=== PATIENT | male | born 1940 | race Caucasian/White ===

== ENCOUNTER 2017-05-26 19:30 | Emergency (ER) | payer MEDICARE, OTHER ==
[~2017-05-26] VITALS: Ht 177.8 cm; Wt 83.9 kg
[~2017-05-26 19:30] MED LIST: APIX5TAB PO; ATOR10TA60 PO; ATOR20TA PO; Aspirin PO; BUDE0.5A NEB; CARV3.12 PO; DIGO125T16 PO; DIGO250T PO; DILT120C80 PO; DILT180C29; DILT180C29 PO; DILT240C32 PO; DOXY100C2 PO; Diltiazem Hcl PO; Doxycycline Hyclate PO; FLUT16SP NS; FLUT250D IH; FORM20VI NEB; FURO-68 PO; FURO40TA4; LEVO500T59 PO; LISI-338 PO; LORA0.5T; LORA0.5T96 PO; METF500T9; METO25TA4 PO; MOME220A5 IH; POTA20TA84; PRED20TA; PRED20TA PO; PRED50TA PO; PROAIR HFA8.5 GM IH; SALM50DI IH; TAMS0.4C2; VENTOLIN HFA18 GM
--- NOTE | 2017-05-26 21:26 | PHYS DOC ---
Past Medical History Past Medical History: A-Fib, CHF, COPD Additional Past Medical Histor: pulmonary fibrosis Past Surgical History: No Surgical History Alcohol Use: Heavy Drug Use: None Adult General Chief Complaint Chief Complaint: FOOT INJURY PAIN [facility] HPI Patient is a 76 year old male who presents with swelling and redness in his left leg. He states he dropped 3 pounds of ground hamburger that was frozen on it yesterday and since it is getting red. He denies any pain. He denies any fevers chills nausea or vomiting. He is on eliquist, for previous blood clot. He states he is compliant with this. He states he has a history of pulmonary fibrosis and is on oxygen at home, he denies any chest pain or shortness of breath is different than his normal shortness of breath. Review of Systems Review of Systems Constitutional: Denies fever or chills [] Eyes: Denies change in visual acuity, redness, or eye pain [] HENT: Denies nasal congestion or sore throat [] Respiratory: Denies cough or shortness of breath [] Cardiovascular: No additional information not addressed in HPI [] GI: Denies abdominal pain, nausea, vomiting, bloody stools or diarrhea [] : Denies dysuria or hematuria [] Musculoskeletal: Denies back pain or joint pain [] Integument: Positive for rash on left lower leg Neurologic: Denies headache, focal weakness or sensory changes [] Endocrine: Denies polyuria or polydipsia [] All other systems were reviewed and found to be within normal limits, except as documented in this note. Current Medications Current Medications Current Medications Medications (Trade) Dose Ordered Sig/Lyubov Start Time Stop Time Status Last Admin Dose Admin Clindamycin HCl (Cleocin) 300 mg 1X ONCE 05/26/17 22:15 05/26/17 22:16 Allergies Allergies Allergies Coded Allergies Type Severity Reaction Last Updated Verified salmeterol Allergy Severe see comment 04/23/15 Yes Physical Exam Physical Exam Constitutional: Well developed, well nourished, no acute distress, non-toxic appearance. [] HENT: Normocephalic, atraumatic, bilateral external ears normal, oropharynx moist, no oral exudates, nose normal. [] Eyes: PERRLA, EOMI, conjunctiva normal, no discharge. [] Neck: Normal range of motion, no tenderness, supple, no stridor. [] Cardiovascular:Heart rate regular rhythm, no murmur [] Lungs & Thorax: Bilateral breath sounds clear to auscultation [] Abdomen: Bowel sounds normal, soft, no tenderness, no masses, no pulsatile masses. [] Skin: Warm, dry, no erythema, no rash. [] Back: No tenderness, no CVA tenderness. [] Extremities: No tenderness, no cyanosis, no clubbing, ROM intact, 1-2+ pitting lower extremity edema on the left, erythema from proximal toes to mid calf, dry cracked skin on toes, dorsal pedis pulse 2+ on the left. Neurologic: Alert and oriented X 3, normal motor function, normal sensory function, no focal deficits noted. [] Psychologic: Affect normal, judgement normal, mood normal. [] Current Patient Data Vital Signs Vital Signs Date Time Temp Pulse Resp B/P (MAP) Pulse Ox O2 Delivery O2 Flow Rate FiO2 05/26/17 19:46 97.4 96 22 129/81 (97) 93 Nasal Cannula 8.0 97.4 EKG EKG [] Radiology/Procedures Radiology/Procedures [] Impressions: Cellulitis of left lower extremity Course & Med Decision Making Course & Med Decision Making Pertinent Labs and Imaging studies reviewed. (See chart for details) She is not tachycardic and does not have a fever. Ultrasound does not show DVT. We'll treat for cellulitis. Started 300mg clindamycin in the ER we'll discharge with the same for 10 days. He is instructed to follow-up with primary care physician within the next few days, he is instructed to take a picture of his leg to show for comparison. He is instructed return back to ER for fevers, worsening redness, pain, uncontrolled nausea vomiting or other concerns. He and his sister is agreeable plan being discharged in stable condition at this time. Dragon Disclaimer Dragon Disclaimer This electronic medical record was generated, in whole or in part, using a voice recognition dictation system. Departure Departure Impression: Primary Impression: Cellulitis Disposition: 01 HOME, SELF-CARE Condition: STABLE Referrals: RICHARD ANDERSON (PCP) Patient Instructions: Cellulitis Additional Instructions: You will need to use antibiotics for the next 10 days. You will need follow-up to primary care physician within the next few days. Please take a picture of your leg so you can show it to your primary care physician as a comparison. Return back to ER if you have high fevers, uncontrolled nausea vomiting, the redness in your leg gets worse, or you have any other concerns. Scripts Clindamycin Hcl (CLINDAMYCIN HCL) 300 Mg Capsule 1 CAP PO TID, #30 CAP Prov: JULISA GARCIA MD 05/26/17 JULISA GARCIA MD May 26, 2017 21:26
[2017-05-26 22:00] VITALS: BP 135/64
[2017-05-26] MEDS ORDERED: CLINDAMYCIN HCL 150 MG CAPSULE. PO ONE (22:15)
[2017-05-26] MEDS ORDERED: CLIN300C8 PO (22:18)
--- NOTE | 2017-05-26 22:24 | RAD ---
EXAM: Left lower extremity venous Doppler sonogram. HISTORY: Swelling. TECHNIQUE: Currie scale and color Doppler sonographic evaluation of the left lower extremity veins with spectral waveform analysis was performed. FINDINGS: There is normal color flow, normal compressibility and there are normal spectral waveforms in the common femoral, superficial femoral, popliteal, posterior tibial and greater saphenous veins. IMPRESSION: No Doppler evidence of lower extremity venous thrombosis. Electronically signed by: Fabiola Cali MD (05/26/2017 10:21 PM) [place] [id number]
--- NOTE | 2017-05-27 08:35 | RAD ---
FOOT LEFT 3V History:trauma, pain and swelling of the foot Comparison: None Findings:3 views of the left foot are submitted. There is degenerative change most notable of the first metatarsophalangeal joint. No displaced fracture is identified. No aggressive bone destruction is identified. There is tiny plantar calcaneal enthesophyte. There is soft tissue swelling. Impression: 1.There is soft tissue swelling, no acute osseous abnormality identified.
== END 2017-05-26 22:35 | disposition home or self-care (01) ==
LOC: ER 19:30
DX: L03.116 Cellulitis of left lower limb (principal); I48.91 Unspecified atrial fibrillation; I50.9 Heart failure, unspecified; J44.9 Chronic obstructive pulmonary disease, unspecified; J84.10 Pulmonary fibrosis, unspecified; F10.20 Alcohol dependence, uncomplicated; Z99.81 Dependence on supplemental oxygen; Z88.8 Allergy status to other drugs, medicaments and biological substances
CPT/HCPCS: 73630; 93971; 99284-25

== ENCOUNTER 2017-09-07 11:07 | Inpatient (IN) | payer MEDICARE, OTHER ==
[2017-09-07] MEDS ORDERED: IPRATRPIUM/ALBUTEROL 0.5/2.5MG 3 ML NEBU. (12:37)
[2017-09-07] MEDS: ALBUTEROL SULFATE 2.5 MG/3 ML NEBU. NEB (12:42)
[2017-09-07 12:54] LABS: BASO % 0 % (0-3); EOS % 0 % (0-3); HEMATOCRIT 40.3 % (39.0-53.0); HEMOGLOBIN 13.4 g/dL (13.0-17.5); LYMPH # 0.6 x10^3/uL (1.0-4.8); LYMPH % 6 % (24-48); MEAN CORPUSCULAR HEMOGLOBIN 31 pg (25-35); MEAN CORPUSCULAR HGB CONC 33 g/dL (31-37); MEAN CORPUSCULAR VOLUME 92 fL (79-100); MONO # 0.3 x10^3/uL (0.0-1.1); MONO % 4 % (0-9); NEUT # 8.1 x10^3uL (1.8-7.7); NEUT % 89 % (31-73); PLATELET COUNT 163 x10^3/uL (140-400); RED CELL DISTRIBUTION WIDTH 14.7 % (11.5-14.5); WHITE BLOOD COUNT 9.1 x10^3/uL (4.0-11.0)
[2017-09-07 12:55] LABS: ADD MAN DIFF? YES
[2017-09-07 12:57] LABS: ALBUMIN 3.5 g/dL (3.4-5.0); ALK PHOS 122 U/L (46-116); ALT (SGPT) 88 U/L (16-63); ANION GAP 3 (6-14); AST (SGOT) 50 U/L (15-37); BLOOD UREA NITROGEN 17 mg/dL (8-26); CALCIUM 9.1 mg/dL (8.5-10.1); CARBON DIOXIDE 36 mmol/L (21-32); CHLORIDE 91 mmol/L (98-107); DIRECT BILIRUBIN 0.4 mg/dL (0.0-0.2); GFR 72.6; LIPASE 277 U/L (73-393); POTASSIUM 4.8 mmol/L (3.5-5.1); SODIUM 130 mmol/L (136-145); TOTAL BILIRUBIN 1.2 mg/dL (0.2-1.0); TOTAL PROTEIN 7.7 g/dL (6.4-8.2)
[2017-09-07 12:59] LABS: INR 1.1 (0.8-1.1); PARTIAL THROMBOPLASTIN TIME 30 SEC (24-38); PROTHROMBIN TIME PATIENT 13.4 SEC (11.7-14.0)
[2017-09-07 13:01] LABS: GLUCOSE 651 mg/dL (70-99)
[2017-09-07 13:01] LABS: TROPONINI < 0.017 ng/mL (0.000-0.055)
[2017-09-07 13:02] LABS: NT-PRO BNP 1148 pg/mL (0-449)
[2017-09-07 13:13] LABS: LACTIC ACID 2.1 mmol/L (0.4-2.0)
[2017-09-07 13:15] LABS: BILIRUBIN,URINE NEGATIVE (NEG); CLARITY,URINE CLEAR; COLOR,URINE YELLOW; GLUCOSE,URINE >=1000 mg/dL (NEG); NITRITE,URINE NEGATIVE (NEG); PROTEIN,URINE NEGATIVE (NEG-TRACE); UROBILINOGEN,URINE 0.2 mg/dL (0.2 mg/dL)
[2017-09-07 13:29] LABS: BACTERIA,URINE 0 /HPF (0-FEW); RBC,URINE 0 /HPF (0-2); SQUAMOUS EPITHELIAL CELL,UR OCC /LPF; WBC,URINE 0 /HPF (0-4)
[2017-09-07] MEDS ORDERED: CONTRAST GIVEN MC (13:45)
[2017-09-07] MEDS: IOHEXOL 300 MG/ML 100ML VIAL. IV (13:53)
[2017-09-07] MEDS ORDERED: ONDANSETRON PF 4 MG/2 ML VIAL. IV (14:00)
[2017-09-07] MEDS ORDERED: MORPHINE SULFATE 4 MG/ML DISP.SYRIN. IV (14:00)
[2017-09-07] MEDS: INSULIN REGULAR 100 UNIT/ML 10ML VIAL. IV (14:33)
[2017-09-07] MEDS: VANCOMYCIN 1.75 GM in IV DEXTROSE 5 %-0.2 % NACL 500 ML IV (14:35)
[2017-09-07 15:28] LABS: % BANDS 8 % (0-9); % LYMPHS 2 % (24-48); % MONOS 4 % (0-10); % SEGS 86 % (35-66); PLT ESTIMATE ADEQUATE (ADEQUATE)
[2017-09-07] MEDS: VANCOMYCIN PER PHARMACY MC (16:46)
[2017-09-07 17:03] LABS: LACTIC ACID 3.2 mmol/L (0.4-2.0)
[2017-09-07 17:14] LABS: POC GLUCOSE 474 mg/dL (70-99)
[2017-09-07] MEDS ORDERED: DEXTROSE 50% 25 GM / 50ML DISP.SYRIN. IV ×2 (18:00→19:30)
[2017-09-07 19:48] LABS: POC GLUCOSE 427 mg/dL (70-99)
[2017-09-07] MEDS: INSULIN REGULAR VIAL 150 UNIT in 0.9 % SODIUM CHLORIDE 150ML 150 ML IV (19:56)
[2017-09-07] MEDS: LACTOBACILLUS RHAMNOSUS GG 1 CAPSULE. PO (21:03)
[2017-09-07 21:17] LABS: POC GLUCOSE 288 mg/dL (70-99)
[2017-09-07 21:52] LABS: LACTIC ACID 2.2 mmol/L (0.4-2.0)
[2017-09-07] MEDS: BUDESONIDE 0.5 MG/2 ML NEBU. NEB (22:00)
[2017-09-07] MEDS: IPRATRPIUM/ALBUTEROL 0.5/2.5MG 3 ML NEBU. NEB (22:00)
[2017-09-07] MEDS ORDERED: ALBUTEROL SULFATE 2.5 MG/3 ML NEBU. NEB (22:00)
[2017-09-07] MEDS: FLUTICASONE 50MCG/NASAL SPRAY 16GM BOTTLE. NS (22:00)
[2017-09-07] MEDS: METOPROLOL TART IMMED RELEASE 25 MG TABLET. PO (22:00)
[2017-09-07] MEDS: TAMSULOSIN 0.4 MG CAP.ER.24H. PO (22:18)
[2017-09-07] MEDS: oxyCODONE/APAP 5/325 1 TAB TABLET PO (22:18)
[2017-09-07] MEDS: predniSONE 10 MG TABLET PO (22:18)
[2017-09-07] MEDS: ATORVASTATIN CALCIUM 10 MG TABLET. PO (22:19)
[2017-09-07] MEDS: APIXABAN 5 MG TABLET. PO (22:19)
[2017-09-07 22:29] LABS: POC GLUCOSE 217 mg/dL (70-99)
[2017-09-07 23:22] LABS: POC GLUCOSE 130 mg/dL (70-99)
[2017-09-08 00:27] LABS: POC GLUCOSE 125 mg/dL (70-99)
[2017-09-08 01:28] LABS: POC GLUCOSE 117 mg/dL (70-99)
[2017-09-08] MEDS: VANCOMYCIN 1.25 GM in IV DEXTROSE 5 %-0.2 % NACL 250 ML IV ×2 (01:28→14:30)
[2017-09-08 03:10] LABS: POC GLUCOSE 227 mg/dL (70-99)
[2017-09-08 04:55] LABS: POC GLUCOSE 443 mg/dL (70-99)
[2017-09-08 05:18] LABS: ADD MAN DIFF? NO
[2017-09-08 05:45] LABS: BASO % 1 % (0-3); EOS # 0.1 x10^3/uL (0.0-0.7); EOS % 1 % (0-3); HEMATOCRIT 36.5 % (39.0-53.0); LYMPH # 0.8 x10^3/uL (1.0-4.8); LYMPH % 10 % (24-48); MEAN CORPUSCULAR HEMOGLOBIN 30 pg (25-35); MEAN CORPUSCULAR HGB CONC 33 g/dL (31-37); MEAN CORPUSCULAR VOLUME 91 fL (79-100); MONO # 0.2 x10^3/uL (0.0-1.1); MONO % 3 % (0-9); NEUT # 7.5 x10^3uL (1.8-7.7); NEUT % 87 % (31-73); PLATELET COUNT 135 x10^3/uL (140-400); RED BLOOD COUNT 3.99 x10^6/uL (4.30-5.70); RED CELL DISTRIBUTION WIDTH 14.9 % (11.5-14.5); WHITE BLOOD COUNT 8.7 x10^3/uL (4.0-11.0)
[2017-09-08 05:59] LABS: ANION GAP 8 (6-14); BLOOD UREA NITROGEN 12 mg/dL (8-26); CALCIUM 9.2 mg/dL (8.5-10.1); CARBON DIOXIDE 34 mmol/L (21-32); CHLORIDE 95 mmol/L (98-107); CREATININE 0.8 mg/dL (0.7-1.3); GLUCOSE 367 mg/dL (70-99); SODIUM 137 mmol/L (136-145)
[2017-09-08 06:06] LABS: POTASSIUM 2.9 mmol/L (3.5-5.1)
[2017-09-08 06:10] LABS: CHOLESTEROL 175 mg/dL (0-200); HDLC 71 mg/dL (40-60); LDLC 75 mg/dL (0-100); NON-HDL CHOLESTEROL 104 mg/dL (0-129); TRIGLYCERIDES 143 mg/dL (0-150); VLDLC 29 mg/dL (0-40)
[2017-09-08 06:14] LABS: CHOLESTEROL/HDL RATIO 2.5
[2017-09-08 06:21] LABS: THYROID STIM HORMONE (TSH) 0.918 uIU/mL (0.358-3.74)
[2017-09-08] MEDS: POTASSIUM CHLORIDE 20 MEQ TABLET.ER. PO ×3 (06:50→12:13)
[2017-09-08] MEDS ORDERED: POTASSIUM CHLORIDE 20 MEQ TABLET.ER. PO (08:00)
[2017-09-08] MEDS: IPRATRPIUM/ALBUTEROL 0.5/2.5MG 3 ML NEBU. NEB ×4 (08:04→19:22)
[2017-09-08] MEDS: BUDESONIDE 0.5 MG/2 ML NEBU. NEB ×2 (08:04→19:22)
[2017-09-08] MEDS: LACTOBACILLUS RHAMNOSUS GG 1 CAPSULE. PO ×2 (08:41→20:37)
[2017-09-08] MEDS: ASPIRIN CHEWABLE 81 MG TABLET. PO (08:42)
[2017-09-08 08:43] LABS: POC GLUCOSE 293 mg/dL (70-99)
[2017-09-08] MEDS: predniSONE 10 MG TABLET PO ×2 (08:43→20:38)
[2017-09-08] MEDS: DIGOXIN 125 MCG TABLET. PO (08:43)
[2017-09-08] MEDS: APIXABAN 5 MG TABLET. PO ×2 (08:44→20:38)
[2017-09-08] MEDS: FUROSEMIDE 40 MG TABLET. PO ×2 (08:44→14:29)
[2017-09-08] MEDS: METOPROLOL TART IMMED RELEASE 25 MG TABLET. PO ×2 (08:44→20:38)
[2017-09-08] MEDS: ANTI-COAG MONITOR BY PHARMACY. MC (08:49)
[2017-09-08] MEDS: INSULIN ASPART 300 UNITS/3 ML INSULN.PEN SQ ×5 (08:59→21:40)
[2017-09-08 09:01] LABS: MAGNESIUM 2.3 mg/dL (1.8-2.4)
[2017-09-08] MEDS: INSULIN DETEMIR 300 UNITS/3 ML INSULN.PEN. SQ ×2 (09:04→17:46)
[2017-09-08] MEDS: VANCOMYCIN PER PHARMACY MC (11:15)
[2017-09-08] MEDS: FLUTICASONE 50MCG/NASAL SPRAY 16GM BOTTLE. NS ×2 (11:53→20:37)
[2017-09-08] MEDS: MICAFUNGIN 100 MG in IV DEXTROSE 5% 100 ML IV (12:14)
[2017-09-08 12:22] LABS: POC GLUCOSE 344 mg/dL (70-99)
[2017-09-08] MEDS: PIPERACILLIN/TAZOBACTAM 3.375 GM in IV NORMAL SALINE 50ML 50 ML IV ×3 (13:38→23:45)
[2017-09-08 17:27] LABS: POC GLUCOSE 455 mg/dL (70-99)
[2017-09-08 18:27] LABS: POTASSIUM 4.5 mmol/L (3.5-5.1)
[2017-09-08] MEDS: ATORVASTATIN CALCIUM 10 MG TABLET. PO (20:37)
[2017-09-08] MEDS: TAMSULOSIN 0.4 MG CAP.ER.24H. PO (20:37)
[2017-09-08 21:08] LABS: POC GLUCOSE 467 mg/dL (70-99)
[2017-09-08] MEDS ORDERED: INSULIN ASPART 300 UNITS/3 ML INSULN.PEN SQ (21:15)
[2017-09-08] MEDS: oxyCODONE/APAP 5/325 1 TAB TABLET PO (22:37)
[2017-09-09 01:24] LABS: POC GLUCOSE 126 mg/dL (70-99)
[2017-09-09] MEDS: VANCOMYCIN 1.25 GM in IV DEXTROSE 5 %-0.2 % NACL 250 ML IV (02:31)
[2017-09-09] MEDS: VANCOMYCIN PER PHARMACY MC ×2 (03:03→11:21)
[2017-09-09] MEDS: oxyCODONE/APAP 5/325 1 TAB TABLET PO ×2 (04:12→23:41)
[2017-09-09] MEDS: PIPERACILLIN/TAZOBACTAM 3.375 GM in IV NORMAL SALINE 50ML 50 ML IV ×4 (05:39→23:45)
[2017-09-09 05:41] LABS: ANION GAP 2 (6-14); BLOOD UREA NITROGEN 17 mg/dL (8-26); CARBON DIOXIDE 38 mmol/L (21-32); CHLORIDE 100 mmol/L (98-107); CREATININE 0.7 mg/dL (0.7-1.3); GFR 109.6; GLUCOSE 98 mg/dL (70-99); POTASSIUM 3.5 mmol/L (3.5-5.1); SODIUM 140 mmol/L (136-145)
[2017-09-09] MEDS: IPRATRPIUM/ALBUTEROL 0.5/2.5MG 3 ML NEBU. NEB ×4 (07:30→19:10)
[2017-09-09] MEDS: BUDESONIDE 0.5 MG/2 ML NEBU. NEB (07:30)
[2017-09-09 07:47] LABS: POC GLUCOSE 153 mg/dL (70-99)
[2017-09-09] MEDS: LACTOBACILLUS RHAMNOSUS GG 1 CAPSULE. PO ×2 (08:35→20:34)
[2017-09-09] MEDS: DIGOXIN 125 MCG TABLET. PO (08:36)
[2017-09-09] MEDS: METOPROLOL TART IMMED RELEASE 25 MG TABLET. PO ×2 (08:36→20:34)
[2017-09-09] MEDS: predniSONE 10 MG TABLET PO ×2 (08:36→20:33)
[2017-09-09] MEDS: FUROSEMIDE 40 MG TABLET. PO ×2 (08:37→13:21)
[2017-09-09] MEDS: APIXABAN 5 MG TABLET. PO ×2 (08:37→20:34)
[2017-09-09] MEDS: FLUTICASONE 50MCG/NASAL SPRAY 16GM BOTTLE. NS ×2 (08:37→20:34)
[2017-09-09] MEDS: ASPIRIN CHEWABLE 81 MG TABLET. PO (08:37)
[2017-09-09] MEDS: INSULIN ASPART 300 UNITS/3 ML INSULN.PEN SQ ×6 (08:41→18:37)
[2017-09-09] MEDS: INSULIN DETEMIR 300 UNITS/3 ML INSULN.PEN. SQ (08:42)
[2017-09-09] MEDS: MICAFUNGIN 100 MG in IV DEXTROSE 5% 100 ML IV (10:10)
[2017-09-09 11:30] LABS: POC GLUCOSE 179 mg/dL (70-99)
[2017-09-09] MEDS: ANTI-COAG MONITOR BY PHARMACY. MC (11:30)
[2017-09-09] MEDS ORDERED: SALIVA STIMULANT AGENT 44ML SPRAY BOTTLE. PO (13:30)
[2017-09-09] MEDS: VANCOMYCIN 1.5 GM in IV DEXTROSE 5 %-0.2 % NACL 500 ML IV (14:14)
[2017-09-09 14:48] LABS: BARBITURATES NEG (NEG); BENZODIAZEPINES NEG (NEG); CANNABINOIDS NEG (NEG); COCAINE NEG (NEG); METHADONE NEG (NEG); OPIATES NEG (NEG); PHENCYCLIDINE NEG (NEG)
[2017-09-09 14:51] LABS: AMPHETAMINE/METHAMPHETAMINE NEG (NEG)
[2017-09-09 14:52] LABS: ETHANOL, URINE NEG (NEG)
[2017-09-09 16:33] LABS: POC GLUCOSE 281 mg/dL (70-99)
[2017-09-09] MEDS: metFORMIN XR 500 MG TAB.ER.24H PO (18:29)
[2017-09-09] MEDS: TAMSULOSIN 0.4 MG CAP.ER.24H. PO (20:34)
[2017-09-09] MEDS: ATORVASTATIN CALCIUM 10 MG TABLET. PO (20:34)
[2017-09-09 20:57] LABS: POC GLUCOSE 163 mg/dL (70-99)
[2017-09-10] MEDS: VANCOMYCIN 1.5 GM in IV DEXTROSE 5 %-0.2 % NACL 500 ML IV (01:56)
[2017-09-10] MEDS: PIPERACILLIN/TAZOBACTAM 3.375 GM in IV NORMAL SALINE 50ML 50 ML IV ×3 (05:56→18:00)
[2017-09-10] MEDS: INSULIN ASPART 300 UNITS/3 ML INSULN.PEN SQ ×6 (07:30→17:38)
[2017-09-10] MEDS: IPRATRPIUM/ALBUTEROL 0.5/2.5MG 3 ML NEBU. NEB ×4 (08:01→19:36)
[2017-09-10] MEDS: BUDESONIDE 0.5 MG/2 ML NEBU. NEB ×2 (08:01→19:36)
[2017-09-10] MEDS: VANCOMYCIN PER PHARMACY MC (08:29)
[2017-09-10] MEDS: predniSONE 10 MG TABLET PO ×2 (08:59→20:29)
[2017-09-10] MEDS: INSULIN DETEMIR 300 UNITS/3 ML INSULN.PEN. SQ (09:00)
[2017-09-10] MEDS: LACTOBACILLUS RHAMNOSUS GG 1 CAPSULE. PO ×2 (09:05→20:29)
[2017-09-10] MEDS: FUROSEMIDE 40 MG TABLET. PO ×2 (09:06→16:02)
[2017-09-10] MEDS: ASPIRIN CHEWABLE 81 MG TABLET. PO (09:06)
[2017-09-10] MEDS: DIGOXIN 125 MCG TABLET. PO (09:06)
[2017-09-10] MEDS: APIXABAN 5 MG TABLET. PO ×2 (09:06→20:31)
[2017-09-10] MEDS: METOPROLOL TART IMMED RELEASE 25 MG TABLET. PO ×2 (09:07→20:30)
[2017-09-10] MEDS: FLUTICASONE 50MCG/NASAL SPRAY 16GM BOTTLE. NS ×2 (09:07→20:31)
[2017-09-10 10:44] LABS: POC GLUCOSE 281 mg/dL (70-99)
[2017-09-10] MEDS: MICAFUNGIN 100 MG in IV DEXTROSE 5% 100 ML IV (11:55)
[2017-09-10 12:09] LABS: POC GLUCOSE 296 mg/dL (70-99)
[2017-09-10] MEDS: ANTI-COAG MONITOR BY PHARMACY. MC (13:34)
[2017-09-10] MEDS: oxyCODONE/APAP 5/325 1 TAB TABLET PO ×2 (16:02→20:37)
[2017-09-10] MEDS: metFORMIN XR 500 MG TAB.ER.24H PO (17:22)
[2017-09-10 18:43] LABS: POC GLUCOSE 151 mg/dL (70-99)
[2017-09-10] MEDS: ATORVASTATIN CALCIUM 10 MG TABLET. PO (20:29)
[2017-09-10] MEDS: TAMSULOSIN 0.4 MG CAP.ER.24H. PO (20:31)
[2017-09-10 21:03] LABS: POC GLUCOSE 123 mg/dL (70-99)
[2017-09-11] MEDS: oxyCODONE/APAP 5/325 1 TAB TABLET PO ×4 (00:37→19:09)
[2017-09-11] MEDS: PIPERACILLIN/TAZOBACTAM 3.375 GM in IV NORMAL SALINE 50ML 50 ML IV ×2 (06:00)
[2017-09-11 07:31] LABS: POC GLUCOSE 285 mg/dL (70-99)
[2017-09-11] MEDS: IPRATRPIUM/ALBUTEROL 0.5/2.5MG 3 ML NEBU. NEB ×3 (08:08→15:58)
[2017-09-11] MEDS: BUDESONIDE 0.5 MG/2 ML NEBU. NEB (08:08)
[2017-09-11] MEDS: METOPROLOL TART IMMED RELEASE 25 MG TABLET. PO (09:00)
[2017-09-11] MEDS: predniSONE 10 MG TABLET PO (09:25)
[2017-09-11] MEDS: DIGOXIN 125 MCG TABLET. PO (09:25)
[2017-09-11] MEDS: APIXABAN 5 MG TABLET. PO (09:25)
[2017-09-11] MEDS: FUROSEMIDE 40 MG TABLET. PO ×2 (09:25→15:08)
[2017-09-11] MEDS: LACTOBACILLUS RHAMNOSUS GG 1 CAPSULE. PO (09:25)
[2017-09-11] MEDS: FLUTICASONE 50MCG/NASAL SPRAY 16GM BOTTLE. NS (09:26)
[2017-09-11] MEDS: ASPIRIN CHEWABLE 81 MG TABLET. PO (09:26)
[2017-09-11] MEDS: CEPHALEXIN 250 MG CAPSULE. PO ×2 (09:29→15:08)
[2017-09-11] MEDS: INSULIN DETEMIR 300 UNITS/3 ML INSULN.PEN. SQ (09:38)
[2017-09-11] MEDS: INSULIN ASPART 300 UNITS/3 ML INSULN.PEN SQ ×6 (09:40→18:21)
[2017-09-11 11:39] LABS: POC GLUCOSE 212 mg/dL (70-99)
[2017-09-11] MEDS: ANTI-COAG MONITOR BY PHARMACY. MC (14:45)
[2017-09-11 16:49] LABS: POC GLUCOSE 174 mg/dL (70-99)
[2017-09-11] MEDS: metFORMIN XR 500 MG TAB.ER.24H PO (18:16)
[2017-09-12] MEDS ORDERED: PIPERACILLIN/TAZOBACTAM 2.25 GM in IV NORMAL SALINE 100ML 100 ML IV (18:00)
[2017-09-18] MEDS ORDERED: POTASSIUM CHLORIDE 20 MEQ TABLET.ER. PO (17:00)
== END 2017-09-11 19:15 | disposition home or self-care (01) | DRG 291 ==
LOC: ER 11:07 → 2 SOUTH 14:00
DX: I11.0 Hypertensive heart disease with heart failure (principal); J96.21 Acute and chronic respiratory failure with hypoxia; J18.9 Pneumonia, unspecified organism; I27.81 Cor pulmonale (chronic); L03.116 Cellulitis of left lower limb; E87.1 Hypo-osmolality and hyponatremia; I42.9 Cardiomyopathy, unspecified; I48.0 Paroxysmal atrial fibrillation; J84.112 Idiopathic pulmonary fibrosis; J44.0 Chronic obstructive pulmonary disease with (acute) lower respiratory infection; I50.43 Acute on chronic combined systolic (congestive) and diastolic (congestive) heart failure; E09.9 Drug or chemical induced diabetes mellitus without complications; Z88.8 Allergy status to other drugs, medicaments and biological substances; E78.5 Hyperlipidemia, unspecified; E87.6 Hypokalemia; F10.20 Alcohol dependence, uncomplicated; G47.33 Obstructive sleep apnea (adult) (pediatric); M19.90 Unspecified osteoarthritis, unspecified site; I49.3 Ventricular premature depolarization; M79.89 Other specified soft tissue disorders; I50.82 Biventricular heart failure; N40.0 Benign prostatic hyperplasia without lower urinary tract symptoms; Z79.01 Long term (current) use of anticoagulants; Z79.52 Long term (current) use of systemic steroids; Z83.3 Family history of diabetes mellitus; Z86.711 Personal history of pulmonary embolism; Z87.891 Personal history of nicotine dependence; Z99.81 Dependence on supplemental oxygen; Z91.11 Patient's noncompliance with dietary regimen
CPT/HCPCS: 36415; 71045; 71275; 72072; 72100; 80048; 80061; 80076; 80202; 80307; 81001; 82962; 83036; 83605; 83690; 83735; 83880; 84132; 84443; 84484; 85007; 85025; 85610; 85730; 93005; 93306; 93970; 94640; 94760; 96374; 97116-GP; 97161-GP; 97165-GO; 99285-25; J1815; J2248; J2543; J3370; J7512; J7613; J7620; J7626; Q9967

== ENCOUNTER 2017-09-12 02:18 | Emergency (ER) | payer MEDICARE, OTHER ==
[2017-09-12] MEDS ORDERED: MORPHINE SULFATE 10 MG/ML VIAL. (03:14)
[2017-09-12] MEDS: MORPHINE SULFATE 10 MG/ML VIAL. IV (03:23)
[2017-09-12 03:51] LABS: ADD MAN DIFF? NO
[2017-09-12 03:53] LABS: BASO # 0.1 x10^3/uL (0.0-0.2); BASO % 1 % (0-3); EOS # 0.2 x10^3/uL (0.0-0.7); EOS % 2 % (0-3); HEMATOCRIT 38.2 % (39.0-53.0); HEMOGLOBIN 12.7 g/dL (13.0-17.5); LYMPH # 1.5 x10^3/uL (1.0-4.8); LYMPH % 20 % (24-48); MEAN CORPUSCULAR HEMOGLOBIN 30 pg (25-35); MEAN CORPUSCULAR HGB CONC 33 g/dL (31-37); MEAN CORPUSCULAR VOLUME 91 fL (79-100); MONO # 0.6 x10^3/uL (0.0-1.1); MONO % 8 % (0-9); NEUT # 5.3 x10^3uL (1.8-7.7); NEUT % 69 % (31-73); PLATELET COUNT 210 x10^3/uL (140-400); RED CELL DISTRIBUTION WIDTH 14.9 % (11.5-14.5); WHITE BLOOD COUNT 7.7 x10^3/uL (4.0-11.0)
[2017-09-12 04:03] LABS: ANION GAP 8 (6-14); BLOOD UREA NITROGEN 20 mg/dL (8-26); BUN/CREATININE RATIO 22 (6-20); CALCIUM 9.6 mg/dL (8.5-10.1); CARBON DIOXIDE 38 mmol/L (21-32); CHLORIDE 96 mmol/L (98-107); CREATININE 0.9 mg/dL (0.7-1.3); GFR 81.8; GLUCOSE 108 mg/dL (70-99); POTASSIUM 3.3 mmol/L (3.5-5.1); SODIUM 142 mmol/L (136-145)
[2017-09-12 04:09] LABS: ALBUMIN 3.1 g/dL (3.4-5.0); ALBUMIN/GLOBULIN RATIO 0.7 (1.0-1.7); ALK PHOS 117 U/L (46-116); ALT (SGPT) 43 U/L (16-63); AST (SGOT) 24 U/L (15-37); TOTAL BILIRUBIN 0.5 mg/dL (0.2-1.0); TOTAL PROTEIN 7.4 g/dL (6.4-8.2)
== END 2017-09-12 05:11 | disposition home or self-care (01) ==
LOC: ER 02:18
DX: M54.5 Low back pain (principal); I48.91 Unspecified atrial fibrillation; I11.0 Hypertensive heart disease with heart failure; I50.9 Heart failure, unspecified; J44.9 Chronic obstructive pulmonary disease, unspecified; E11.9 Type 2 diabetes mellitus without complications; E78.00 Pure hypercholesterolemia, unspecified; Z88.8 Allergy status to other drugs, medicaments and biological substances
CPT/HCPCS: 36415; 72131; 80053; 85025; 96374; 99285-25; J2270

== ENCOUNTER 2017-09-20 21:43 | Inpatient (IN) | payer MEDICARE, OTHER ==
[2017-09-20 22:22] LABS: BASO # 0.1 x10^3/uL (0.0-0.2); BASO % 1 % (0-3); EOS # 0.2 x10^3/uL (0.0-0.7); EOS % 3 % (0-3); HEMATOCRIT 37.1 % (39.0-53.0); HEMOGLOBIN 12.5 g/dL (13.0-17.5); LYMPH # 1.5 x10^3/uL (1.0-4.8); LYMPH % 20 % (24-48); MEAN CORPUSCULAR HEMOGLOBIN 30 pg (25-35); MEAN CORPUSCULAR HGB CONC 34 g/dL (31-37); MEAN CORPUSCULAR VOLUME 90 fL (79-100); MONO # 0.4 x10^3/uL (0.0-1.1); MONO % 5 % (0-9); NEUT # 5.3 x10^3uL (1.8-7.7); NEUT % 71 % (31-73); PLATELET COUNT 286 x10^3/uL (140-400); RED BLOOD COUNT 4.13 x10^6/uL (4.30-5.70); WHITE BLOOD COUNT 7.5 x10^3/uL (4.0-11.0)
[2017-09-20 22:27] LABS: ADD MAN DIFF? YES
[2017-09-20] MEDS: MORPHINE SULFATE 4 MG/ML DISP.SYRIN. IV (22:30)
[2017-09-20 22:32] LABS: INR 1.2 (0.8-1.1); PARTIAL THROMBOPLASTIN TIME 32 SEC (24-38); PROTHROMBIN TIME PATIENT 14.7 SEC (11.7-14.0)
[2017-09-20 22:33] LABS: ANION GAP 5 (6-14); BLOOD UREA NITROGEN 19 mg/dL (8-26); BUN/CREATININE RATIO 19 (6-20); CALCIUM 9.7 mg/dL (8.5-10.1); CARBON DIOXIDE 39 mmol/L (21-32); CHLORIDE 99 mmol/L (98-107); GFR 72.5; GLUCOSE 164 mg/dL (70-99); POTASSIUM 4.1 mmol/L (3.5-5.1); SODIUM 143 mmol/L (136-145)
[2017-09-20] MEDS: IV NORMAL SALINE 1000ML BAG 1,000 ML IV (22:35)
[2017-09-20 22:39] LABS: ALBUMIN 3.3 g/dL (3.4-5.0); ALBUMIN/GLOBULIN RATIO 0.8 (1.0-1.7); ALK PHOS 112 U/L (46-116); ALT (SGPT) 42 U/L (16-63); AST (SGOT) 34 U/L (15-37); TOTAL BILIRUBIN 0.6 mg/dL (0.2-1.0); TOTAL PROTEIN 7.4 g/dL (6.4-8.2)
[2017-09-20 22:40] LABS: TROPONINI 0.017 ng/mL (0.000-0.055)
[2017-09-20 22:47] LABS: CKMB MASS 1.3 ng/mL (0.0-3.6); CREATINE KINASE 26 U/L (39-308)
[2017-09-20 22:47] LABS: NT-PRO BNP 465 pg/mL (0-449)
[2017-09-20] MEDS: fentaNYL PF VIAL 100 MCG/2 ML VIAL IV (23:00)
[2017-09-20] MEDS ORDERED: CONTRAST GIVEN MC (23:15)
[2017-09-20 23:20] LABS: % ATYL 1 % (0-0); % BANDS 3 % (0-9); % EOS 3 % (0-5); % LYMPHS 19 % (24-48); % MONOS 1 % (0-10); % SEGS 73 % (35-66); PLT ESTIMATE ADEQUATE (ADEQUATE)
[2017-09-20] MEDS: IOHEXOL 300 MG/ML 100ML VIAL. IV (23:31)
[2017-09-21] MEDS ORDERED: ONDANSETRON PF 4 MG/2 ML VIAL. IV (00:15)
[2017-09-21 00:25] LABS: TROPONIN BY ISTAT 0.03 ng/ml (<0.08)
[2017-09-21] MEDS: fentaNYL PF VIAL 100 MCG/2 ML VIAL IV ×2 (00:48→05:01)
[2017-09-21] MEDS: MORPHINE SULFATE 4 MG/ML DISP.SYRIN. IV ×4 (01:20→10:11)
[2017-09-21 03:58] LABS: POC GLUCOSE 137 mg/dL (70-99)
[2017-09-21] MEDS: IV NORMAL SALINE 500ML BAG 500 ML IV (04:45)
[2017-09-21] MEDS ORDERED: DEXTROSE 50% 25 GM / 50ML DISP.SYRIN. IV (09:45)
[2017-09-21] MEDS: FUROSEMIDE 40 MG TABLET. PO ×2 (10:00→14:00)
[2017-09-21] MEDS: POTASSIUM CHLORIDE 20 MEQ TABLET.ER. PO ×2 (10:00→15:35)
[2017-09-21] MEDS: METOPROLOL TART IMMED RELEASE 25 MG TABLET. PO (10:00)
[2017-09-21] MEDS: oxyCODONE/APAP 5/325 1 TAB TABLET PO (10:10)
[2017-09-21] MEDS: IV NORMAL SALINE 1000ML BAG 1,000 ML IV ×2 (10:15→22:21)
[2017-09-21] MEDS: FLUTICASONE 50MCG/NASAL SPRAY 16GM BOTTLE. NS ×2 (10:16→20:35)
[2017-09-21] MEDS: DIGOXIN 125 MCG TABLET. PO (10:57)
[2017-09-21] MEDS: TAMSULOSIN 0.4 MG CAP.ER.24H. PO (10:57)
[2017-09-21] MEDS: predniSONE 20 MG TABLET PO ×2 (10:57→20:35)
[2017-09-21] MEDS: INSULIN ASPART 300 UNITS/3 ML INSULN.PEN SQ ×2 (12:00→17:00)
[2017-09-21] MEDS: KETOROLAC 15 MG/ML VIAL. IV ×2 (13:04→20:36)
[2017-09-21 13:35] LABS: POC GLUCOSE 119 mg/dL (70-99)
[2017-09-21] MEDS: LIDOCAINE (700MG/PATCH) PATCH. TD (14:00)
[2017-09-21] MEDS: APIXABAN 5 MG TABLET. PO ×2 (15:46→20:35)
[2017-09-21] MEDS ORDERED: ENOXAPARIN 40 MG/0.4 ML SYRINGE. SQ (16:00)
[2017-09-21] MEDS ORDERED: SALIVA STIMULANT AGENT 44ML SPRAY BOTTLE. PO (16:15)
[2017-09-21] MEDS: ATORVASTATIN CALCIUM 10 MG TABLET. PO (20:35)
[2017-09-21 20:36] LABS: POC GLUCOSE 217 mg/dL (70-99)
[2017-09-21] MEDS: PATCH REMOVAL. MC (20:36)
[2017-09-21] MEDS ORDERED: APIXABAN 5 MG TABLET. PO (21:00)
[2017-09-22] MEDS: KETOROLAC 15 MG/ML VIAL. IV ×2 (05:12→15:52)
[2017-09-22] MEDS: POTASSIUM CHLORIDE 20 MEQ TABLET.ER. PO (08:50)
[2017-09-22] MEDS: LIDOCAINE (700MG/PATCH) PATCH. TD (08:50)
[2017-09-22] MEDS: DIGOXIN 125 MCG TABLET. PO (08:51)
[2017-09-22] MEDS: TAMSULOSIN 0.4 MG CAP.ER.24H. PO (08:51)
[2017-09-22] MEDS: FUROSEMIDE 40 MG TABLET. PO ×2 (08:51→15:52)
[2017-09-22] MEDS: predniSONE 20 MG TABLET PO (08:51)
[2017-09-22] MEDS: APIXABAN 5 MG TABLET. PO (08:51)
[2017-09-22] MEDS: FLUTICASONE 50MCG/NASAL SPRAY 16GM BOTTLE. NS (09:00)
[2017-09-22] MEDS: INSULIN ASPART 300 UNITS/3 ML INSULN.PEN SQ ×2 (09:04→16:06)
[2017-09-22 12:20] LABS: POC GLUCOSE 265 mg/dL (70-99)
[2017-09-22 12:20] LABS: POC GLUCOSE 251 mg/dL (70-99)
[2017-09-22 16:09] LABS: POC GLUCOSE 372 mg/dL (70-99)
[2017-09-23] MEDS ORDERED: metFORMIN XR 500 MG TAB.ER.24H PO (17:00)
== END 2017-09-22 16:15 | disposition home health service (06) | DRG 291 ==
LOC: 6 SOUTH 09-21 02:32 → ER 21:43 → 1 WEST ICU 09-21 04:56 → 2 SOUTH 09-21 19:42
DX: I11.0 Hypertensive heart disease with heart failure (principal); J18.9 Pneumonia, unspecified organism; I50.33 Acute on chronic diastolic (congestive) heart failure; J96.21 Acute and chronic respiratory failure with hypoxia; I27.81 Cor pulmonale (chronic); I42.9 Cardiomyopathy, unspecified; I48.2 Chronic atrial fibrillation; J84.10 Pulmonary fibrosis, unspecified; J44.0 Chronic obstructive pulmonary disease with (acute) lower respiratory infection; E11.9 Type 2 diabetes mellitus without complications; I50.82 Biventricular heart failure; E78.5 Hyperlipidemia, unspecified; T38.0X5A Adverse effect of glucocorticoids and synthetic analogues, initial encounter; Z79.01 Long term (current) use of anticoagulants; Z79.4 Long term (current) use of insulin; Z83.3 Family history of diabetes mellitus; Z87.891 Personal history of nicotine dependence; Z99.81 Dependence on supplemental oxygen; M19.90 Unspecified osteoarthritis, unspecified site; E78.00 Pure hypercholesterolemia, unspecified; Z88.8 Allergy status to other drugs, medicaments and biological substances; R07.89 Other chest pain
CPT/HCPCS: 36415; 71045; 71260; 74177; 80053; 82553; 82962; 83880; 84484; 85007; 85025; 85610; 85730; 93005; 96361; 96374; 97161-GP; 97165-GO; 99285; 99285-25; J1815; J1885; J2270; J3010; J7030; J7512; Q9967